=== PATIENT | female | born 1960 ===

== ENCOUNTER → 2018-06-01 | Outpatient (CLI) | payer BC | LOC: C.MAMMO 08:42 | DX: Z12.31 Encounter for screening mammogram for malignant neoplasm of breast (principal) ==

== ENCOUNTER 2018-06-27 12:20 | Outpatient (CLI) | payer BC | END 2018-06-27 12:21 | disposition home or self-care (01) | LOC: C.USIC 12:20 | DX: R10.9 Unspecified abdominal pain (principal); R42 Dizziness and giddiness; N13.30 Unspecified hydronephrosis ==

== ENCOUNTER 2018-07-25 10:07 | Outpatient (CLI) | payer BC | END 2018-07-27 07:48 | disposition home or self-care (01) | LOC: C.NUCMED 10:07 | DX: N13.30 Unspecified hydronephrosis (principal) ==